=== PATIENT | male | born 1955 | race Caucasian/White ===

== ENCOUNTER 2017-05-04 09:00 | Outpatient (CLI) | payer OTHER ==
[~2017-05-04] VITALS: Ht 175.3 cm; Wt 81.6 kg
[~2017-05-04 09:00] MED LIST: CALC-196 PO; ENLP5T PO; MULT-963 PO; PRD20T PO; VITA1CAP59 PO; ZINC50TA49 PO; [UNRECOGNIZED DRUG - CODE] PO
[2017-05-04] MEDS ORDERED: ENAL5TAB PO (10:50)
[2017-05-04] MEDS ORDERED: LYSI500T3 PO (10:56)
[2017-05-04] MEDS ORDERED: MULT-517 PO (10:56)
[2017-05-04] MEDS ORDERED: ZINC50TA51 PO (10:56)
[2017-05-04] MEDS ORDERED: CALC-78 PO (10:56)
[2017-05-04] MEDS ORDERED: VITA1CAP PO (10:56)
[2017-05-04] MEDS ORDERED: MAGN500C15 PO (10:56)
== END 2017-05-04 10:56 ==
LOC: PREOP 09:00
PROVIDERS: ATTEND Surgery
DX: Z01.818 Encounter for other preprocedural examination (principal); Z12.11 Encounter for screening for malignant neoplasm of colon

== ENCOUNTER 2017-05-05 10:31 | Day surgery (SDC) | payer OTHER ==
[~2017-05-05] VITALS: Ht 175.3 cm; Wt 81.6 kg
[~2017-05-05 10:31] MED LIST changes: +CALC-78 PO; +ENAL5TAB PO; +LYSI500T3 PO; +MAGN500C15 PO; +MULT-517 PO; +VITA1CAP PO; +ZINC50TA51 PO
--- OUTSIDE RECORDS SUMMARY | 2017-05-05 10:34 | XMS REPORT | Continuity of Care Document ---
Author Author [facility] Organization [facility] Address Unknown Phone Unavailable Allergies Active Description Code Type Severity Reaction Onset Reported/Identified Relationship to Patient Clinical Status Yes No Known Drug Allergies [id number] Drug Allergy Unknown N/ A 05/04/2017 Medications Problems Procedures Results Encounters ACCT No. Visit Date/Time Discharge Status Pt. Type Provider Facility Loc./Unit Complaint [id number] 05/04/2017 09:00:00 2016 10:56:00 DIS Outpatient BECCA NASCIMENTO MD [facility] PREOP COLONOSCOPY [id number] 08/15/2013 11:04:00 2013 13:42:00 DIS Emergency [id number] 12/26/2012 07:23:00 2012 23:59:59 CLS Outpatient [id number] 05/05/2017 15:00:00 PEN Preadmit BECCA NASCIMENTO MD [facility] ENDO SCREENING
[2017-05-05] MEDS ORDERED: LIDOCAINE JELLY 2% (XYLOCAINE) 5 ML TUBE MM PRN (10:45)
[2017-05-05 10:53] VITALS: BP 127/80
[2017-05-05] MEDS ORDERED: NS IV 500 ML 500 ML IV PRN (11:00)
[2017-05-05] MEDS ORDERED: fentaNYL INJECTION 100 MCG/2 ML AMP ONE ×2 (11:39)
[2017-05-05] MEDS ORDERED: MIDAZOLAM 2 MG/2 ML (VERSED) VIAL ONE ×5 (11:39→11:40)
[2017-05-05] MEDS ORDERED: LIDOCAINE JELLY 2% (XYLOCAINE) 5 ML TUBE ONE (11:39)
--- NOTE | 2017-05-05 11:50 | Conscious Sedation/ASA ---
Conscious Sedation Pre-Proced Time Reviewed: 11:30 ASA Class: 2 Airway Mallampati Classification: ([place] appropriate class) I. II. III, IV Lungs Heart ASA score ASA 1: a normal healthy patient ASA 2: a patient with a mild systemic disease (mid diabetes, controlled hypertension, obesity ASA 3: a patient with a severe systemic disease that limits activity (angina , COPD, prior Myocardial infarction) ASA 4: a patient with an incapacitating disease that is a constant threat to life (CHF, renal failure) ASA 5: a moribund patient not expected to survive 24 hrs. (ruptured aneurysm) ASA 6: a declared brain patient whose organs are being harvested. For emergent operations, add the letter E after the classification Grade 2 Sedation Plan: Analgesia, Amnesia, Plan communicated to team members, Discussed options with patient/fam, Discussed risks with patient/fam Note The patient is an appropriate candidate to undergo the planned procedure, sedation, and anesthesia. The patient immediately re-assessed prior to indication. BECCA NASCIMENTO MD May 05, 2017 11:50 am
--- NOTE | 2017-05-05 11:51 | Progress Note-Pre Operative ---
Pre-Operative Progress Note H&P Reviewed The H&P was reviewed, patient examined and no changes noted. Date Seen by Provider: May 05, 2017 Time Seen by Provider: 11:30 Date H&P Reviewed: May 05, 2017 Time H&P Reviewed: 11:30 Pre-Operative Diagnosis: screening colonoscopy BECCA NASCIMENTO MD May 05, 2017 11:51 am
[2017-05-05] MEDS ORDERED: morphine INJ 10 MG/ML 1ML (SYR OR VIAL) IV PRN (12:00)
[2017-05-05] MEDS ORDERED: ONDANSETRON 4 MG/2 ML (SDV) Z0FRAN IV PRN (12:00)
[2017-05-05] MEDS ORDERED: ACETAMINOPHEN 325 MG TABLET/CAPLET (TYLENOL) PO PRN (12:00)
[2017-05-05] MEDS ORDERED: HYDROcodone/APAP 5 MG/325 MG (LORTAB) TAB PO PRN (12:00)
[2017-05-05] MEDS: MIDAZOLAM 2 MG/2 ML (VERSED) VIAL IVP PRN ×4 (12:05→12:20)
[2017-05-05] MEDS: fentaNYL INJECTION 100 MCG/2 ML AMP IVP PRN ×4 (12:06→12:22)
--- NOTE | 2017-05-05 12:52 | Progress Note-Post Operative ---
Post-Operative Progess Note Surgeon (s)/Literacy Consultant (s) Surgeon BECCA NASCIMENTO MD Literacy Consultant: none Pre-Operative Diagnosis screening colonoscopy Post-Operative Diagnosis rectal HP polyp(1mm), rectosigmoid adenomatous polyp(4mm). Procedure & Operative Findings Date of Procedure 05/05/17 Procedure Performed/Findings Colonoscopy with bx and snare polypectomy. Anesthesia Type CS Estimated Blood Loss Estimated blood loss (mL): minimal Specimens/Packing Specimens Removed rectal polyp, rectosigmoid polyp BECCA NASCIMENTO MD May 05, 2017 12:52
--- NOTE | 2017-05-05 12:53 | Discharge Inst-Surgical ---
D/C Lap Instructions-PILY Follow Up- will call with polyp bx results and f/u colonoscopy time. Activity as tolerated No driving for 24 hours No [address] while on pain medications Incentive Spirometry use every 2 hours while awake High Fiber Diet 25g or more per day Avoid Alcohol, Caffeine, Spicy [place] and Acid foods. Drink 64 fluid oz or more of fluids per day. Symptoms to Report: Fever over 101 degree F, Nausea/Vomiting If any problems/questions: Contact your physician or go to Emergency Room BECCA NASCIMENTO MD May 05, 2017 12:53
[2017-05-05 13:00] VITALS: BP 112/66
[2017-05-05 13:30] VITALS: BP 112/74
[2017-05-05 13:52] VITALS: BP 112/74
--- NOTE | 2017-05-05 15:54 | OPERATIVE REPORT ---
DATE OF SERVICE: 05/05/2017 ATTENDING PRIMARY CARE PHYSICIAN: Dr. Yan. PREOPERATIVE DIAGNOSIS: Screening colonoscopy. POSTOPERATIVE DIAGNOSIS: Hyperplastic polyp of the rectum 1 mm in size, adenomatous polyp rectosigmoid junction approximately 4 mm in size. PROCEDURE: Colonoscopy with snare polypectomy and biopsy. SURGEON: Becca Nascimento MD ANESTHESIA: Conscious sedation. ESTIMATED BLOOD LOSS: Minimal. FINDINGS: No significant hemorrhoids identified. Prostate gland was palpable and appeared normal. There was a very small hyperplastic polyp of the rectum approximately 1 mm in size. There was an adenomatous polyp on a stalk approximately 4 to 5 mm in size at the rectosigmoid junction, which was excised using snare at its base. DISPOSITION: The patient tolerated the procedure well. INDICATIONS: The patient is a 62-year-old male in need of a screening colonoscopy. He states that he has not had a colonoscopy up to this point in his life. He is doing well and does not report any issues with diarrhea nor constipation as well as no red blood per rectum nor any dark tarry stools. He has not had a colonoscopy up to this point in his life. He also does not recall any family history of colon cancer. DESCRIPTION OF PROCEDURE: The patient was brought to the endoscopy suite, laid in the left lateral decubitus position. After adequate IV pain and sedating medications and conscious sedation anesthesia, a digital rectal examination was performed. There were no significant hemorrhoids identified. Normal sphincter tone was felt and there were no palpable masses. Prostate gland was palpable and appeared normal. The endoscope was then intubated into the anus and rectum and gently insufflated. The endoscope was then advanced through the valves of Arshad of the rectum. A small hyperplastic polyp was identified of the rectum, which was very small, approximately 1 mm in size. This was biopsied and destroyed using forceps and electrocautery with visualization of good hemostasis. The endoscope was then advanced proximal to the rectosigmoid junction where a classic adenomatous polyp identified, which was on a stalk. This was approximately 4 to 5 mm in size. This was cauterized and transected at its base using a snare as well as electrocautery. Good hemostasis was observed. The endoscope was then advanced through the sigmoid colon where no diverticulosis identified. We then proceeded through remainder of the descending, transverse, ascending colon and cecum. These segments were normal. There were no other lesions identified. The endoscope was then slowly withdrawn while taking a second look and suctioning of residual air with no additional findings. The patient tolerated the procedure well. We will have him proceed with medical management with a high fiber diet with at least 30 grams of fiber per day as well as at least 64 fluid ounces of water to promote soft stools on a daily basis. We will await the biopsy results. If there is any villous component of adenomatous polyp we will recommend a followup colonoscopy in three years. If not, then he may wait up to 10 years. Job ID: [id number] DocumentID: [id number] Dictated Date: 05/05/2017 12:51:33 Hospice Volunteer Coordinator Date: 05/05/2017 15:54:06 Dictated By: BECCA NASCIMENTO MD
== END 2017-05-05 13:52 | disposition home or self-care (01) ==
LOC: ENDO 10:31
PROVIDERS: ATTEND Surgery
DX: Z12.11 Encounter for screening for malignant neoplasm of colon (principal); D12.7 Benign neoplasm of rectosigmoid junction; K62.1 Rectal polyp; I10 Essential (primary) hypertension; Z87.891 Personal history of nicotine dependence; Z79.899 Other long term (current) drug therapy